=== PATIENT | male | born 1945 | race Caucasian/White ===

== ENCOUNTER 2016-09-04 07:36 | Inpatient (IN) | payer OTHER, BC ==
[2016-08-28 08:47] LABS: HEMATOCRIT 42.3 % (42.0-52.0); HEMOGLOBIN 14.3 gm/dL (14.0-18.0); MCH 31.5 pg (26.0-34.0); MCHC 33.8 g/dL (28.0-37.0); MCV 93.3 fL (80.0-100.0); RBC 4.54 mil/uL (4.50-6.00); RDW 13.9 % (10.5-14.5); WBC 5.1 thou/uL (4.0-11.0)
[2016-08-28 08:50] LABS: URINE BILIRUBIN NEGATIVE (Negative); URINE BLOOD NEGATIVE (Negative); URINE COLOR YELLOW; URINE GLUCOSE-RANDOM* NEGATIVE (Negative); URINE KETONES NEGATIVE (Negative); URINE LEUKOCYTES-REFLEX NEGATIVE (Negative); URINE PROTEIN (DIPSTICK) NEGATIVE (Negative); URINE SPECIFIC GRAVITY 1.025 (1.003-1.035); URINE UROBILINOGEN 0.2 E.U./dl (0.2-1.0)
[2016-08-28 09:02] LABS: CALCIUM 8.9 mg/dL (8.5-10.1); CREATININE 1.1 mg/dL (0.6-1.3); POTASSIUM 4.7 mmol/L (3.5-5.1)
[~2016-09-04] VITALS: Ht 182.9 cm; Wt 69.7 kg
--- NOTE | ~2016-09-04 | H ---
[facility] [place] [address] HISTORY AND PHYSICAL Name: AGA STEELE Room #: 150-7 ADM IN M.R.#: [id number] Admission: 09/18/16 Attend Phys: Ramon Quintana MD Discharge: Date of : 47 Report #: [id number] THIS REPORT FOR: //name// CC: Ramon Goins DATE OF SERVICE: 09/18/2016 CHIEF COMPLAINT: Leg pain. HISTORY OF PRESENT ILLNESS: The patient is a pleasant 71-year-old male who initially had presented to the outpatient neurosurgery clinic as a second opinion regarding assessment and management of significant back issues. The patient's primary care provider is Dr. Praveena Goins. The patient has a history of having severe stenosis in his lower lumbar spine. He has complaints of low back pain which radiates down the back of his legs to his ankles. The patient reports his pain is equal bilaterally. He does report minimal pain while sitting down. The pain has been present for approximately 1 year. He denies any specific inciting events. No associated history of trauma or falls. The pain has progressed overtime and now fluctuates, but can reach 9/10 on the visual analog scale for pain. The pain has been having a negative impact on sleep hygiene. The patient states that his mornings appear to be worse. The pain is present with activity. He reports difficulty getting up and down from the ground. No changes in bowel or bladder habits. No complaints of neck pain or upper extremity radicular complaints. The patient has previously attempted conservative therapy. He is submitted lumbar epidural steroid injections by Dr. Durant which had positive impact, but the effects were lasting only a couple of months. The patient infrequently takes oral narcotic pain medication with marginal positive impact on his symptoms. We have discussed additional conservative treatment versus surgical intervention and I have advised the patient to submit to surgical intervention. He presents today for definite surgical correction of his lumbar stenosis. No other complaints were elicited at this time. PAST MEDICAL HISTORY: Includes coronary artery disease status post SD, history of blood clots, hypertension, history of nephrolithiasis, history of shingles, tonsillitis and ulcers. PAST SURGICAL HISTORY: Includes bilateral knee surgery for meniscal tears, "cyst" removed from his lower back, previous hernia repair and a right rotator cuff surgery. FAMILY MEDICAL HISTORY: Includes cancer, diabetes and early cardiac disease. SOCIAL HISTORY: The patient is . 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 He has 2 adult children. He has a 1-pack-year history of tobacco [address] [address] HISTORY AND PHYSICAL Name: AGA STEELE PRANAY Room #: 150-7 [facility] IN [facility]#: [id number] Admission: 09/18/16 Attend Phys: Ramon Quintana MD Discharge: Date of : 47 Report #: [id number] use. He quit greater than 10 years ago. He consumes alcohol 1-2 times per week. He denies history of abuse or prescription medications or illicit substances. HOME MEDICATIONS: Include turmeric, calcium supplements, vitamin D supplements, aspirin, Plavix, losartan, atorvastatin and Protonix. ALLERGIES: No known drug allergies. REVIEW OF SYSTEMS: A 13-point review of systems was performed which was positive for corrective lenses, easy bruising, difficulty sleeping and snoring. The remainder of the patient's review of systems was negative for additional medical complaints other than those noted in history of present illness and past medical history. PHYSICAL EXAMINATION: GENERAL: The patient is a well-developed, well-nourished male, in no acute distress. He appears his stated age. NEUROLOGIC: He is groomed appropriately. He is awake and alert. He is oriented x 3. He is cooperative with examination. His mood is appropriate and congruent. Memory appears to be intact to remote, intermediate and recent events. Attention, memory and concentration appear to be normal. He appears to have reasonable understanding of everyday activities and their consequences, own personal needs and his current medical situation. Vocabulary is normal. Speech is clear. General fund of knowledge appears to be appropriate for age and socioeconomic status. The patient's pupils are equal and reactive. His extraocular muscles appear to be full. His face is symmetric. His tongue appears in the midline. Uvula and palate seem to elevate symmetrically. Shoulder shrug is equal. There is no obvious pronator drift. Motor strength appears 5/5 and symmetric in bilateral upper and lower extremities. Deep tendon reflexes are normal and symmetric in the bilateral upper as well as lower extremities. No abnormal pectoral, Clark's and no crossed adductor reflexes were elicited. The patient arises reasonably well from a seated position. He ambulates with an antalgic gait. Sensation appears to be grossly intact to light touch, pinprick and proprioception in bilateral upper as well as lower extremities. IMAGING STUDIES: The patient's MRI from diagnostic imaging centers on 08/12/2015 which demonstrates grade 1 spondylolisthesis at L4-L5. There is severe facet arthropathy and ligamentous hypertrophy in L4-L5 greater than L3-L4. There is severe central stenosis greater at L4-L5 than L3-L4. There is a right-sided synovial cyst at L3-L4 leading to additional central stenosis. DIAGNOSES: 1. Lumbar spondylosis. 2. Lumbar stenosis. [address] [address] HISTORY AND PHYSICAL Name: AGA STEELE Room #: 150-7 ADM IN .R.#: [id number] Admission: 09/18/16 Attend Phys: Ramon Quintana MD Discharge: Date of : 46 Report #: [id number] 3. Lumbar synovial cyst. 4. Acquired lumbar spondylolisthesis. PLAN: 1. We have reviewed the patient's presenting complaints and their probable relationships with available clinical and radiographic data. 2. Given the nature and persistence of his complaints, negative impact of these complaints on his daily life and in correlation with the available imaging studies, I have recommended the patient to perceive with his surgical intervention. 3. The goals of surgery as well as risks and benefits were reviewed with the patient in the outpatient clinic setting and is adequately documented on the outpatient chart. The patient and her family have acknowledged the understanding of this discussion and wished to proceed with surgery. Consent was signed and placed on the chart. The goals of surgery include but not exclusively limited to bleeding, infection, risk of cerebrospinal fluid leak and its consequences, potential for injury to local structures including nerve roots which could result in permanent pain or disability, potential for hardware/implant failure and its consequences, potential for development of additional regions of structural instability which could result in additional need for surgical intervention or failure of surgical intervention with residual recurrent symptoms as well as risk of undergoing anesthesia and hospitalization. 4. After careful consideration of our discussion, the patient wishes to proceed with surgical intervention. 5. It is anticipated the patient will recover in the medical surgical floor following recovery from anesthesia in the postanesthesia care unit. It is further anticipated the patient will return to the outpatient neurosurgery clinic in the immediate postoperative period for a routine followup. By: [id number] Ramon Quintana MD /nt
--- NOTE | ~2016-09-04 | O ---
[address] [address] OPERATIVE REPORT Name: STEELEAGA PRANAY Room #: 535-P [facility] IN M.R.#: [id number] Admission: 09/18/16 Attend Phys: Ramon Quintana MD Discharge: Date of : 47 Report #: [id number] THIS REPORT FOR: //name// CC: Ramon Goins DATE OF SERVICE: 09/18/2016 PREOPERATIVE DIAGNOSES: 1. Lumbar spondylosis. 2. Lumbar stenosis. 3. Lumbar synovial cyst. 4. L4-L5 spondylolisthesis. POSTOPERATIVE DIAGNOSES: 1. Lumbar spondylosis. 2. Lumbar stenosis. 3. Lumbar synovial cyst. 4. L4-L5 spondylolisthesis. PROCEDURE PERFORMED: 1. Right-sided L3-L4 transforaminal lumbar interbody fusion. 2. Right-sided L4-L5 transforaminal lumbar interbody fusion. 3. Placement of biomechanical intervertebral device at L3-L4. 4. Placement of biomechanical intervertebral device at L4-L5. 5. Bilateral L3-L5 pedicle screw and martha fixation. 6. Intraoperative neurophysiologic monitoring. 7. Use of fluoroscopy to provide intraoperative localization. 8. Use of operating microscope to provide illumination and magnification for microdissection. SURGEON: Ramon Quintana MD. COMMUNITY NUTRITION EDUCATOR: None. ANESTHESIA: General endotracheal. INTRAOPERATIVE FLUIDS: 1900 mL of crystalloid. URINE OUTPUT: 430 mL. ESTIMATED BLOOD LOSS: 50 mL. SPECIMEN: None. COMPLICATIONS: None apparent. [address] [address] OPERATIVE REPORT Name: AGA STEELE Room #: 535-P [facility] IN .R.#: [id number] Admission: 09/18/16 Attend Phys: Ramon Quintana MD Discharge: Date of : 47 Report #: [id number] FINDINGS: Severe stenosis at L3-L4 and L4-L5 with evidence of synovial cyst at both L3-L4 and L4-L5 on the right side, previous surgical exposure at L4-L5 on the right with a grade 2 L4-L5 spondylolisthesis. HISTORY: The patient is a pleasant 71-year-old gentleman with a history of back and bilateral lower extremity radicular complaints, consistent with lumbar stenosis. Imaging studies demonstrated the presence of severe stenosis at L3-L4, as well as right-sided, in particular lateral recess stenosis at L4-L5. The patient attempted conservative therapy without significant improvement. Given the nature and persistence of his complaints, negative impact of these complaints on his daily life, and in correlation with the available imaging studies, I have recommended the patient to pursue a surgical option. The goals of surgery, as well as risks and benefits were reviewed with the patient in outpatient clinical setting and is adequately documented on the outpatient chart. The patient and his family have acknowledged the understanding of this discussion, and they wished to proceed with surgery. Consent was signed and placed on the chart. DESCRIPTION OF PROCEDURE: The patient was taken to the operating room by Anesthesia, having IVs placed preoperatively. He underwent successful placement of an endotracheal tube for general endotracheal anesthesia. Antibiotics were given per protocol. Alvarenga catheter was placed. The patient was then gently rotated from the supine to prone position on top of the radiolucent Jarrod table in standard spine configuration. His arms were gently rotated to be positioned above his head with care taken to maintain his elbows and shoulders at less than 90 degrees of flexion. All pressure points were checked and found to be adequately padded. Neurophysiologic monitoring was initiated with somatosensory evoked potentials and free running EMGs. Baselines were established. The patient's back was then cleaned, prepped, and draped in the usual sterile fashion. C-arm fluoroscopic unit was draped in the field sterilely to assist with intraoperative localization. An external skin marker was used to identify the spinal midline and 2 parallel incisions were drawn 3.5 cm lateral to the midline from the top of the L3 pedicle to the bottom of the L5 pedicle. These incisions were 3.5 cm lateral to the midline. Both incisions were then infiltrated with 10 mL of 1% lidocaine with epinephrine. The skin itself was incised with #10 blade down to the thoracolumbar fascia. Thoracolumbar fascia was incised with the same blade. Next, safety wires were placed in the bilateral pedicles of L3, L4 and L5, using AP and lateral fluoroscopic guidance. Having secured the safety wires in place, they were bent out of the field. Additionally, a small dilator from the STAT-Diagnosticatronic METRx retractor tray was passed through the wound and fascia over the right side and docked on the right lamina of L3. Over this, was passed serial dilators, the wound was dilated to 26 mm. With the wound at 26 mm, a 26 mm x 6 cm long METRx retractor was passed over the dilators and secured to the table with the articulating arm. The dilators were removed. The position and adequacy of the [facility] [address] [place] [address] OPERATIVE REPORT Name: AGA STEELE Room #: 535-P [facility] IN M.R.#: [id number] Admission: 09/18/16 Attend Phys: Ramon Quintana MD Discharge: Date of : 46 Report #: [id number] retractor was verified by AP and lateral fluoroscopy. Next, the microscope was brought in to field to provide illumination and magnification for microdissection, the muscles overlying the right L3 lamina were reduced with Bovie electrocautery. High speed pneumatic drill with albert matchstick bur was then used to initiate laminotomy at L3-L4 on the right side. Once the ligamentum flavum was identified, the laminotomy was expanded with various sized Kerrison punches. An osteotome mallet was then used to disarticulate the inferior articular facet of L3. High speed pneumatic drill with albert matchstick bur with small Kerrison punch was then used to disarticulate the superior articulating facet of L4. The ligamentum flavum was then perforated with blunt nerve hook exposing the underlying dura. With the dura in plain view, the ligamentum flavum was resected with various sized Kerrison punches. There was significant scarring of the lateral edge of the thecal sac to the overlying ligamentum flavum, with evidence of synovial cyst and the neural foramen at L3-L4 on the right side. I dissected through the scar tissue, exposing the lateral edge of the thecal sac and then into the neural foramen. The lateral edge of the thecal sac, the shoulder of the L4 nerve root, and L3 nerve roots were identified. The thecal sac was medially deviated. Next, a bayoneted #11 blade was then used to perform an annulotomy at L3-L4. Diskectomy was then performed in a standard fashion using various sized curettes and Fina rongeurs. Disk space distractors from [employer] instrument tray were tamped in to the disk space. The disk space was distracted to 10 mm. The disk space was again rasped and cleared of residual disk material. Trials of Medtronic Capstone instrument tray were tamped in to disk space, and a 10 x 26 mm implant appeared to fit appropriately in the space. The trial was removed. The disk space was cleared again of disk material. The patient's own local autograft bone, which was harvested during the decompression was morcellized and placed within the L3-L4 disk space, as well as a half of a sponge from STAT-Diagnosticat[employer] Extra Small Infuse kit. The second half of the Infuse sponge, and additional local autograft bone was then packed in the center of a Medtronic Lumoratone PTC biomechanical intervertebral device, 10 mm x 28 mm. The biomechanical device was then placed in the L3-L4 disk space. Meticulous hemostasis obtained with bipolar electrocautery and FloSeal. The wound was copiously irrigated with bacitracin-containing irrigation. Additional dissection was performed to ensure the thecal sac and the L3-L4 nerve roots were adequately decompressed. The retractor tube was then withdrawn to the skin surface. In similar fashion, the 26 mm diameter x 6 cm long METRx retractor was placed at L4-L5 on the right side. In a similar fashion using the microscope to provide illumination and magnification for microdissection, the muscles overlying the right L4 lamina were reduced with Bovie electrocautery. There was an evidence of an external synovial cyst at L3-L4 on the right side, which was cut away with various sized Kerrison punches. The previous laminotomy site was identified. High speed pneumatic drill with albert matchstick bur was then used to initiate laminotomy at L4-L5 on the right side. An osteotome mallet was then used to disarticulate the inferior articulating facet of L4. High speed pneumatic drill with albert matchstick bur with small Kerrison punch was then [facility] [address] [place] [address] OPERATIVE REPORT Name: AGA STEELE Room #: 535-P [facility] IN M.R.#: [id number] Admission: 09/18/16 Attend Phys: Ramon Quintana MD Discharge: Date of : 46 Report #: [id number] used to disarticulate the remaining portions of the superior articulating facet of L5. There was evidence of significant scarring from the previous resection of synovial cyst at L4-L5, I dissected the significant amount of the scar tissue away from the thecal sac; however, there was a small amount. I did leave an intact out of concern, and it certainly causing a CSF leak from incisional durotomy. Dissection was then proceeded until the thecal sac, in particularly the L3-L4 nerve roots were free of any undue compression. Next, dissection in neural foramen identified the L4-L5 disk space. An annulotomy was performed with a bayoneted #11 blade. Diskectomy was performed with various sized curettes and Fina rongeurs. Again, disk space distractor from STAT-Diagnosticatronic Lumoratone instrument tray were tamped in to the disk space. The disk space distracted to 9 mm. At this point in time, the 9 mm distractor was left in place on the right side. Attention turned to the left side, over the previously placed safety wires, polyaxial pedicle screws from [employer] instrument tray were placed using 6.5 x 50 mm polyaxial screw in L5 and 6.5 x 55 mm polyaxial screws at both L3 and L4. Next, a 60 mm prebent cobalt chrome martha was passed between the screw heads, and then using the reduction facet screws, the patient's spondylolisthesis was reduced substantially. I allowed for some residual spondylolisthesis at L4-L5 as further attempted spondylolisthesis reduction would have necessitated causing a spondylolisthesis at L3-L4. Next, set screws were temporarily tightened in to position. Attention returned back to the right side, where the disk space distractor was removed. Trials from Medtronic Capstone instrument tray were tamped in to disk space and a 9 x 28 mm implant appeared to fit appropriately in the disk space. Trial was removed. The disk space was then rasped, and cleared of residual disk material and cartilaginous endplate. The patient's own local autograft bone, which was harvested during the decompression was morcellized and placed within the level L4-L5 disk space, as well as a half of a sponge from [employer]at[employer] Extra Small Infuse kit. Remaining local autograft bone, as well as second half of the Extra small Infuse sponge was placed within the center of a STAT-Diagnosticatronic Capstone PTC 9 x 28 cm biomechanical intervertebral device, which was then also tamped in the L4-L5 disk space. Having secured the interbody spacer, attention turned to the left side where the set screws were tightened to their torque limited breakoff position. Screw assemblies were removed. Additional dissection was then performed on the right side at L4-L5 to ensure that there was adequate decompression of the thecal sac in particularly the L3-L4 nerve roots. Next, the wound was copiously irrigated with bacitracin-containing irrigation, meticulous hemostasis obtained with bipolar electrocautery and FloSeal. Retractor tube was withdrawn to the skin surface. In similar fashion, the right side, polyaxial pedicle screws from Medtronic Voyager instrument tray were placed using a 6.5 x 55 mm polyaxial screws at L3 and L4, and a 6.5 x 50 mm polyaxial screw at L5. Again, a 60 mm prebent cobalt chrome martha was passed between the screw heads and set screws were tightened into position. The set screws were then tightened to their torque-limited breakoff point. The screw assemblies were removed. The wounds were irrigated with bacitracin irrigation. Meticulous hemostasis obtained with bipolar electrocautery and FloSeal. Muscle [facility] [address] [place] [address] OPERATIVE REPORT Name: AGA STEELE Room #: 535-P [facility] IN M.R.#: [id number] Admission: 09/18/16 Attend Phys: Ramon Quintana MD Discharge: Date of : 46 Report #: [id number] and fascia was closed with interrupted 2-0 Vicryl stitches. A 20 mL of 0.75% Marcaine with epinephrine was injected to the paraspinous muscle to act as local anesthesia. Skin itself was then closed with inverted interrupted 2-0 Vicryl stitches and a 4-0 running subcuticular Vicryl stitch. Dressings of Telfa and Tegaderm were put Telfa and Tegaderm were applied. The patient was then returned from the prone back to supine position on the recovery room bed. He was awoken from anesthesia and taken to PACU in hemodynamically stable and satisfactory condition. All needle, sponge, and instrument counts were correct times 2 per nursing at the end of the case. Neurophysiologic monitoring remained stable at baseline through the entirety of the case. Direct pedicle screw stimulation failed to identify any significant abnormal EMG activity above standard threshold values. By: [id number] Ramon Quintana MD /nt
[~2016-09-04 07:36] MED LIST: ASPIRIN325 PO; ATORVASTATIN CA40 MG PO; CALCIUM 600 +1 EAC1 PO; COZAAR 50 MG TA50 M2 PO; JUICE PLUS PO; PLAVIX 75 MG TA75 M1 PO; PROTONIX40 M1 PO; TURMERIC1 GM PO; VITAMIN D2000 UNIT PO
[2016-09-18] VITALS (8 sets, daily range): BP systolic 120–158; BP diastolic 59–85
[2016-09-19 03:05] VITALS: BP 110/51
[2016-09-19 07:47] VITALS: BP 120/64
[2016-09-19 15:35] VITALS: BP 140/74
[2016-09-19 20:00] VITALS: BP 116/71
[2016-09-20] VITALS: BP 153/64
[2016-09-20 04:00] VITALS: BP 128/60
[2016-09-20 07:08] VITALS: BP 131/72
[2016-09-20 16:22] VITALS: BP 108/62
[2016-09-21 04:00] VITALS: BP 110/62; BP 151/65
[2016-09-21 07:36] VITALS: BP 115/57
[2016-09-21] MEDS ORDERED: ULTRA-LIGHT RO1 EACH MC (10:30)
[2016-09-21] MEDS ORDERED: FLEXERIL PO (10:30)
[2016-09-21] MEDS ORDERED: NORCO 10-325 T1 EACH PO (10:32)
[2016-09-21] MEDS ORDERED: NAPROSYN500 MG PO (10:34)
[2016-09-21 11:22] VITALS: BP 115/57
== END 2016-09-21 11:40 | disposition home or self-care (01) | DRG 460 ==
LOC: PRE 07:36 → 5S 09-18 05:48 → TBA 09-18 05:48 → PRE 09-18 09:38 → 5S 09-18 15:20
PROVIDERS: Neurological Surgery
PROC: 4A11X4G Monitoring of Peripheral Nervous Electrical Activity, Intraoperative, External Approach (ICD-10-PCS; principal; 2016-09-18)
PROC: 0SG10AJ Fusion of 2 or more Lumbar Vertebral Joints with Interbody Fusion Device, Posterior Approach, Anterior Column, Open Approach (ICD-10-PCS; principal; 2016-09-18)
PROC: 0SB20ZZ Excision of Lumbar Vertebral Disc, Open Approach (ICD-10-PCS; principal; 2016-09-18)
DX: M47.896 Other spondylosis, lumbar region (principal); M48.06 Spinal stenosis, lumbar region; I25.10 Atherosclerotic heart disease of native coronary artery without angina pectoris; I10 Essential (primary) hypertension; B02.9 Zoster without complications; Z96.653 Presence of artificial knee joint, bilateral; M43.16 Spondylolisthesis, lumbar region; M71.30 Other bursal cyst, unspecified site; E78.5 Hyperlipidemia, unspecified; G89.29 Other chronic pain; M54.9 Dorsalgia, unspecified; Z79.899 Other long term (current) drug therapy; Z80.9 Family history of malignant neoplasm, unspecified; Z83.3 Family history of diabetes mellitus; Z82.49 Family history of ischemic heart disease and other diseases of the circulatory system; Z87.442 Personal history of urinary calculi
CPT/HCPCS: 10785; 50010; 50101; 50402; 50455; 50515; 50522; 50743; 50744; 50746; 50747; 50772; 50782; 50850; 50860; 50923; 51751; 51779; 51878; 53210; 56526; 56532; 56651; 62110; 62900; 70005